=== PATIENT | male | born 1940 | race Caucasian/White ===

== ENCOUNTER 2017-11-24 06:53 | Observation (INO) | payer MEDICARE, OTHER ==
[2017-11-24] MEDS: FAMOTIDINE 20 MG TAB PO (07:00)
[2017-11-24] MEDS ORDERED: SOD CHLORIDE 0.45% 1,000 ML IV (07:00)
[2017-11-24] MEDS: DIPHENHYDRAMINE 50 MG CAP PO (07:00)
[2017-11-24] MEDS: DIAZEPAM 5 MG TAB PO (07:00)
[2017-11-24] MEDS ORDERED: IODIXANOL LOCM 100 ML BTL ×2 (07:49→09:59)
[2017-11-24] MEDS ORDERED: VERAPAMIL 5 MG INJ (07:49)
[2017-11-24] MEDS ORDERED: HEPARIN 1000 UNITS/ML 10 ML INJ (07:49)
[2017-11-24] MEDS ORDERED: LIDOCAINE 1% (MDV) 20 ML INJ (07:49)
[2017-11-24] MEDS ORDERED: NITROGLYCERIN (IC) 100 MCG/ML INJ (07:49)
[2017-11-24 07:57] LABS: ADD MAN DIFF? NO
[2017-11-24 08:04] LABS: BASOPHILS % 0.3 % (0.0-2.0); EOSINOPHILS # 0.4 10^3/ul (0.0-0.5); EOSINOPHILS % 3.9 % (0.0-7.0); HEMATOCRIT 46.3 % (42.0-52.0); HEMOGLOBIN 15.6 g/dl (14.0-18.0); LYMPHOCYTES # 2.2 10^3/ul (0.8-2.9); LYMPHOCYTES % 23.4 % (15.0-51.0); MEAN CORPUSCULAR HEMOGLOBIN 30.8 pg (29.0-33.0); MEAN CORPUSCULAR HGB CONC 33.7 g/dl (32.0-37.0); MEAN CORPUSCULAR VOLUME 91.5 fl (82.0-101.0); MEAN PLATELET VOLUME 9.8 fl (7.4-10.4); MONOCYTE # 0.7 10^3/ul (0.3-0.9); MONOCYTES % 7.6 % (0.0-11.0); NEUTROPHIL # 5.9 10^3/ul (1.6-7.5); NEUTROPHILS % 64.5 % (39.0-77.0); PLATELET COUNT 242 10^3/UL (140-415); RED BLOOD COUNT 5.06 10^6/ul (4.70-6.10); RED CELL DISTRIBUTION WIDTH 12.2 % (11.5-14.5)
[2017-11-24 08:04] LABS: WHITE BLOOD COUNT 9.2 10^3/ul (4.8-10.8)
[2017-11-24 08:20] LABS: INR 0.92; PROTIME 12.4 Sec (11.9-14.9)
[2017-11-24 08:21] LABS: PARTIAL THROMBOPLASTIN TIME 30.7 Sec (25.0-35.0)
[2017-11-24 08:23] LABS: ANION GAP 19 (8-16); CALCIUM 10.1 mg/dl (8.4-10.2); CARBON DIOXIDE 26 mmol/L (21-31); CHLORIDE 103 mmol/L (97-110); CHOL/HDL RATIO 5.1 RATIO; CHOLESTEROL 114 mg/dl (100-200); CREATININE 0.97 mg/dl (0.61-1.24); GLUCOSE 203 mg/dl (70-220); HDL CHOLESTEROL 22 mg/dl (31-75); LDL CHOLESTEROL,CALCULATED 71 mg/dl; POTASSIUM 3.6 mmol/L (3.5-5.1); SODIUM 144 mmol/L (135-144); TRIGLYCERIDES 105 mg/dl (0-149)
[2017-11-24 08:26] LABS: BLOOD UREA NITROGEN 21 mg/dl (7-20)
[2017-11-24] MEDS ORDERED: FENTAnyl 50 MCG/ML VIAL (08:48)
[2017-11-24] MEDS ORDERED: MIDAZOLAM 1 MG/ML 2 ML INJ (08:48)
[2017-11-24] MEDS: SOD CHLORIDE 0.9% 1,000 ML IV (10:26)
[2017-11-24] MEDS ORDERED: morphine 2 MG INJ IV ×2 (10:30→13:30)
[2017-11-24] MEDS ORDERED: ONDANSETRON 4 MG INJ IV ×2 (10:30→13:30)
[2017-11-24] MEDS ORDERED: AL HYDROX/MG HYDROX/SIMETH 30 ML CUP PO (10:30)
[2017-11-24] MEDS ORDERED: ACETAMINOPHEN 325 MG TAB PO ×2 (10:30→13:30)
[2017-11-24] MEDS ORDERED: NON-FORMULARY/PATIENT OWN MED (Dapagliflozin Propanediol (Farxiga) 10 MG) PO (13:30)
[2017-11-24] MEDS: DOCUSATE SODIUM 100 MG CAP PO ×2 (13:30→20:10)
[2017-11-24] MEDS ORDERED: ZOLPIDEM 5 MG TAB PO (13:30)
[2017-11-24] MEDS ORDERED: HYDROCODONE/APAP (5/325) TAB PO (13:30)
[2017-11-24] MEDS ORDERED: LORAZEPAM 0.5 MG TAB PO (13:30)
[2017-11-24 13:46] LABS: HEMOGLOBIN A1C 10.1 % (0-5.9)
[2017-11-24] MEDS: ACCU-CHEK XX ×2 (14:00→20:50)
[2017-11-24] MEDS ORDERED: GLUCAGON 1 MG INJ IM (14:30)
[2017-11-24] MEDS ORDERED: DEXTROSE 50% 50 ML SYRINGE IV ×2 (14:30)
[2017-11-24] MEDS ORDERED: GLUCOSE GEL 15 GRAM TUBE PO ×2 (14:30)
[2017-11-24] MEDS ORDERED: GLUCOSE GEL 15 GRAM TUBE BUCCAL (14:30)
[2017-11-24] MEDS: INSULIN ASPART [NOVOLOG] 3 ML PEN SC ×2 (17:28→20:50)
[2017-11-24] MEDS: FISH OIL 1,000 MG CAP PO (20:11)
[2017-11-24] MEDS: ASCORBIC ACID 500 MG TAB PO (20:11)
[2017-11-24] MEDS: LOSARTAN 50 MG TAB PO (20:11)
[2017-11-24] MEDS: ATORVASTATIN 10 MG TAB PO (20:11)
[2017-11-24] MEDS: ISOSORBIDE MONONITRATE(SR)60 MG TAB PO (20:11)
[2017-11-24] MEDS: HYDROCHLOROTHIAZIDE 25 MG TAB PO (20:12)
[2017-11-24] MEDS: GUAIFENESIN 20 MG/ML 5ML CUP PO ×2 (20:48→23:54)
[2017-11-24] MEDS: INSULIN GLARGINE [LANtus] 3 ML PEN SC (20:56)
[2017-11-25] MEDS: ACCU-CHEK XX ×2 (01:15→09:53)
[2017-11-25] MEDS: GUAIFENESIN 20 MG/ML 5ML CUP PO ×2 (04:36→08:00)
[2017-11-25] MEDS: INSULIN ASPART [NOVOLOG] 3 ML PEN SC ×3 (08:20→12:32)
[2017-11-25] MEDS: FISH OIL 1,000 MG CAP PO (08:23)
[2017-11-25] MEDS: CHOLECALCIFEROL 1,000 UNIT TAB PO (08:23)
[2017-11-25] MEDS: DOCUSATE SODIUM 100 MG CAP PO (08:23)
[2017-11-25] MEDS: LINAGLIPTIN 5 MG TABLET PO (08:23)
[2017-11-25] MEDS: ASPIRIN (EC) 81 MG TAB PO (08:23)
[2017-11-25] MEDS: ASCORBIC ACID 500 MG TAB PO (08:24)
[2017-11-25] MEDS: AMLODIPINE 10 MG TAB PO (08:24)
[2017-11-25] MEDS: ENOXAPARIN 40 MG/0.4 ML SYG SC (08:25)
[2017-11-25] MEDS: INSULIN GLARGINE [LANtus] 3 ML PEN SC (08:26)
[2017-11-25 08:34] LABS: ADD MAN DIFF? NO
[2017-11-25 08:42] LABS: BASOPHILS % 0.3 % (0.0-2.0); EOSINOPHILS # 0.3 10^3/ul (0.0-0.5); EOSINOPHILS % 4.6 % (0.0-7.0); HEMATOCRIT 42.9 % (42.0-52.0); HEMOGLOBIN 14.5 g/dl (14.0-18.0); LYMPHOCYTES # 1.6 10^3/ul (0.8-2.9); LYMPHOCYTES % 21.8 % (15.0-51.0); MEAN CORPUSCULAR HEMOGLOBIN 31.3 pg (29.0-33.0); MEAN CORPUSCULAR HGB CONC 33.8 g/dl (32.0-37.0); MEAN CORPUSCULAR VOLUME 92.7 fl (82.0-101.0); MEAN PLATELET VOLUME 10.2 fl (7.4-10.4); MONOCYTE # 0.6 10^3/ul (0.3-0.9); MONOCYTES % 8.3 % (0.0-11.0); NEUTROPHIL # 4.8 10^3/ul (1.6-7.5); NEUTROPHILS % 64.7 % (39.0-77.0); PLATELET COUNT 231 10^3/UL (140-415); RED BLOOD COUNT 4.63 10^6/ul (4.70-6.10); RED CELL DISTRIBUTION WIDTH 12.3 % (11.5-14.5)
[2017-11-25 08:42] LABS: WHITE BLOOD COUNT 7.4 10^3/ul (4.8-10.8)
[2017-11-25 08:46] LABS: HEMOGLOBIN A1C 9.8 % (0-5.9)
[2017-11-25 09:13] LABS: ALANINE AMINOTRANSFERASE 33 IU/L (13-69); ALBUMIN 3.9 g/dl (3.3-4.9); ALKALINE PHOSPHATASE 53 IU/L (42-121); ANION GAP 16 (8-16); ASPARTATE AMINO TRANSFERASE 21 IU/L (15-46); BILIRUBIN,INDIRECT 0.5 mg/dl (0-1.1); BILIRUBIN,TOTAL 0.5 mg/dl (0.2-1.3); BLOOD UREA NITROGEN 21 mg/dl (7-20); CALCIUM 8.8 mg/dl (8.4-10.2); CARBON DIOXIDE 27 mmol/L (21-31); CHLORIDE 102 mmol/L (97-110); CREATININE 1.04 mg/dl (0.61-1.24); GLUCOSE 296 mg/dl (70-220); POTASSIUM 3.1 mmol/L (3.5-5.1); SODIUM 142 mmol/L (135-144); TOTAL PROTEIN 6.9 g/dl (6.1-8.1)
[2017-11-25] MEDS: POTASSIUM CHLORIDE (SR) 20 MEQ TAB PO (10:42)
[2017-11-25] MEDS ORDERED: ALBUTEROL/IPRATROPIUM (NEB) 3 ML AMP HHN ×2 (11:00→14:00)
[2017-11-25] MEDS: CEFPODOXIME 200 MG TAB PO (12:41)
[2017-11-25] MEDS: SALMETEROL/FLUTICASONE 250/50 INHA INH (12:41)
[2017-11-25] MEDS: TIOTROPIUM 18 MCG CAPSULE INHA DEV INH (12:42)
== END 2017-11-25 13:00 | disposition home or self-care (01) ==
LOC: SDS 06:53 → REC 10:29 → TEL 14:15
PROVIDERS: Internal Medicine
DX: I25.10 Atherosclerotic heart disease of native coronary artery without angina pectoris (principal); E11.9 Type 2 diabetes mellitus without complications; E78.5 Hyperlipidemia, unspecified; I10 Essential (primary) hypertension; Z87.891 Personal history of nicotine dependence
CPT/HCPCS: 71045; 80048; 80053; 80061; 82962; 83036; 83735; 85025; 85610; 85730; 92978; 93005; 93306; 93458; G0378

== ENCOUNTER 2018-01-17 05:31 | Inpatient (IN) | payer MEDICARE, OTHER ==
[2018-01-16 07:49] LABS: ADD MAN DIFF? NO
[2018-01-16 07:54] LABS: BASOPHILS % 0.5 % (0.0-2.0); EOSINOPHILS # 0.3 10^3/ul (0.0-0.5); HEMATOCRIT 47.2 % (42.0-52.0); LYMPHOCYTES # 1.8 10^3/ul (0.8-2.9); LYMPHOCYTES % 28.6 % (15.0-51.0); MEAN CORPUSCULAR HEMOGLOBIN 30.7 pg (29.0-33.0); MEAN CORPUSCULAR HGB CONC 33.9 g/dl (32.0-37.0); MEAN CORPUSCULAR VOLUME 90.6 fl (82.0-101.0); MEAN PLATELET VOLUME 9.7 fl (7.4-10.4); MONOCYTE # 0.6 10^3/ul (0.3-0.9); MONOCYTES % 8.8 % (0.0-11.0); NEUTROPHIL # 3.6 10^3/ul (1.6-7.5); NEUTROPHILS % 57.8 % (39.0-77.0); PLATELET COUNT 204 10^3/UL (140-415); RED BLOOD COUNT 5.21 10^6/ul (4.70-6.10); RED CELL DISTRIBUTION WIDTH 12.2 % (11.5-14.5)
[2018-01-16 07:54] LABS: WHITE BLOOD COUNT 6.3 10^3/ul (4.8-10.8)
[2018-01-16 08:09] LABS: ADD UMIC NO; UR ASCORBIC ACID 40 mg/dL (NEGATIVE); UR BILIRUBIN (Dip) NEGATIVE (NEGATIVE); UR BLOOD (Dip) NEGATIVE (NEGATIVE); UR CLARITY CLEAR (CLEAR); UR COLOR YELLOW (YELLOW); UR GLUCOSE (Dip) 3+ mg/dL (NEGATIVE); UR KETONES (Dip) NEGATIVE (NEGATIVE); UR LEUKOCYTE ESTERASE (Dip) NEGATIVE Leu/ul (NEGATIVE); UR NITRITE (Dip) NEGATIVE (NEGATIVE); UR TOTAL PROTEIN (Dip) NEGATIVE (NEGATIVE); UR UROBILINOGEN (Dip) NEGATIVE (NEGATIVE)
[2018-01-16 08:14] LABS: INR 0.98; PARTIAL THROMBOPLASTIN TIME 28.6 Sec (25.0-35.0); PROTIME 13.1 Sec (11.9-14.9)
[2018-01-16 08:23] LABS: ANION GAP 19 (8-16); BLOOD UREA NITROGEN 19 mg/dl (7-20); CALCIUM 9.2 mg/dl (8.4-10.2); CARBON DIOXIDE 25 mmol/L (21-31); CHLORIDE 102 mmol/L (97-110); CREATININE 0.86 mg/dl (0.61-1.24); GLUCOSE 151 mg/dl (70-220); POTASSIUM 3.6 mmol/L (3.5-5.1); SODIUM 142 mmol/L (135-144)
[~2018-01-17 05:31] MED LIST: PHENYLephrine 20MG IN 250 ML 250 ML IV
[2018-01-17] MEDS ORDERED: TRANEXAMIC ACID 1,000 MG/10 ML VIAL (07:00)
[2018-01-17] MEDS ORDERED: DOPamine-D5W 1.6 MG/ML 250 ML (07:00)
[2018-01-17] MEDS ORDERED: INSULIN REGULAR, HUMAN 100 UNIT/1 ML 3ML VIAL (07:00)
[2018-01-17] MEDS ORDERED: NITROGLYCERIN 50 MG/D5W 250 ML BTL (07:00)
[2018-01-17] MEDS: INSULIN REGULAR, HUMAN 100 UNIT/1 ML 3ML VIAL SC (07:03)
[2018-01-17] MEDS ORDERED: PHENYLephrine 20MG IN 250 ML 250 ML IV (07:30)
[2018-01-17] MEDS ORDERED: EPINEPHrine 4 MG in DEXTROSE 5% 246 ML IV (07:30)
[2018-01-17] MEDS ORDERED: INSULIN HUMAN REGULAR 100 UNIT in SOD CHLORIDE 0.9% 99 ML IV (07:30)
[2018-01-17] MEDS ORDERED: MIDAZOLAM 5 ML ×3 (07:36→12:43)
[2018-01-17] MEDS ORDERED: PHENYLephrine (100 MCG/ML) 5ML SYG ×2 (07:45→09:52)
[2018-01-17] MEDS ORDERED: CA CHLORIDE 10% 10 ML SYRINGE (08:32)
[2018-01-17] MEDS ORDERED: MAGNESIUM SULFATE (MG) 50% 10 ML INJ (08:32)
[2018-01-17] MEDS ORDERED: MANNITOL 20% 250 ML IV (08:32)
[2018-01-17] MEDS ORDERED: LIDOCAINE 100 MG SYRINGE (08:32)
[2018-01-17] MEDS ORDERED: ALBUMIN HUMAN 25% 200 ML (08:32)
[2018-01-17] MEDS ORDERED: NA BICARBONATE 8.4% 50 ML SYG (08:32)
[2018-01-17] MEDS ORDERED: PHENYLephrine 10 MG INJ (08:32)
[2018-01-17] MEDS ORDERED: POTASSIUM CHLORIDE 40 MEQ INJ (08:33)
[2018-01-17] MEDS ORDERED: AMINOCAPROIC ACID 5 GM INJ ×2 (08:33→11:05)
[2018-01-17] MEDS ORDERED: FUROSEMIDE 20 MG INJ ×2 (08:33→10:34)
[2018-01-17] MEDS ORDERED: HEPARIN 1000 UNITS/ML 10 ML INJ ×2 (08:33→09:19)
[2018-01-17] MEDS ORDERED: CEFAZOLIN 1 GM INJ ×2 (08:50→11:05)
[2018-01-17] MEDS ORDERED: PROTAMINE 250 MG INJ (11:10)
[2018-01-17] MEDS: HEPARIN 1000 UNITS/ML 10 ML INJ (11:48)
[2018-01-17] MEDS: PAPAVERINE 60 MG INJ (11:49)
[2018-01-17] MEDS: VANCOMYCIN 1 GM INJ (11:50)
[2018-01-17] MEDS: GELATIN SIZE 100 SPONGE (12:16)
[2018-01-17] MEDS: THROMBIN 5000 UNIT VIAL TOP (12:17)
[2018-01-17] MEDS ORDERED: LIDOCAINE 2% (SDV) 5 ML INJ (12:58)
[2018-01-17] MEDS ORDERED: ROCURONIUM 50 MG INJ (12:58)
[2018-01-17] MEDS ORDERED: ETOMIDATE 20 MG INJ (12:58)
[2018-01-17] MEDS ORDERED: POTASSIUM CHLORIDE 50 ML IVPB ×2 (13:30→14:30)
[2018-01-17] MEDS ORDERED: ACETAMINOPHEN 650 MG SUPP PR ×2 (13:30→14:30)
[2018-01-17] MEDS ORDERED: NITROGLYCERIN 50 MG/D5W (PMX) 250 ML IV (13:30)
[2018-01-17] MEDS ORDERED: HYDROmorphONE 0.5 MG/0.5 ML SYG IV ×6 (13:30→14:30)
[2018-01-17] MEDS ORDERED: ALBUMIN HUMAN 5% 250 ML IV (13:30)
[2018-01-17] MEDS ORDERED: ONDANSETRON 4 MG INJ IV ×2 (13:30→14:30)
[2018-01-17] MEDS ORDERED: MEPERIDINE 25 MG INJ IV (13:30)
[2018-01-17] MEDS ORDERED: LORAZEPAM 2 MG INJ IV (13:30)
[2018-01-17] MEDS ORDERED: MAGNESIUM SULFATE 1 GM/D5W 100 ML IVPB ×2 (13:30→14:30)
[2018-01-17] MEDS ORDERED: ACETAMINOPHEN 325 MG TAB PO (13:30)
[2018-01-17] MEDS ORDERED: DOPamine-D5W 1.6 MG/ML 250 ML IV (13:30)
[2018-01-17] MEDS ORDERED: DIPHENHYDRAMINE 50 MG INJ IV (13:30)
[2018-01-17] MEDS ORDERED: MIDAZOLAM 1 MG/ML 2 ML INJ IV (13:30)
[2018-01-17] MEDS ORDERED: FENTAnyl 50 MCG/ML VIAL IV (13:30)
[2018-01-17] MEDS ORDERED: morphine (1 MG/ML) 10ML SYRINGE IV ×2 (13:30)
[2018-01-17] MEDS ORDERED: DEXTROSE 50% 50 ML SYRINGE IV ×2 (14:00)
[2018-01-17 14:05] LABS: ADD MAN DIFF? NO; BASOPHILS % 0.2 % (0.0-2.0); EOSINOPHILS # 0.1 10^3/ul (0.0-0.5); EOSINOPHILS % 0.3 % (0.0-7.0); HEMATOCRIT 38.5 % (42.0-52.0); HEMOGLOBIN 13.4 g/dl (14.0-18.0); MEAN CORPUSCULAR HEMOGLOBIN 31.8 pg (29.0-33.0); MEAN CORPUSCULAR HGB CONC 34.8 g/dl (32.0-37.0); MEAN CORPUSCULAR VOLUME 91.4 fl (82.0-101.0); MEAN PLATELET VOLUME 9.1 fl (7.4-10.4); MONOCYTE # 0.6 10^3/ul (0.3-0.9); MONOCYTES % 4.1 % (0.0-11.0); NEUTROPHIL # 11.6 10^3/ul (1.6-7.5); NEUTROPHILS % 80.7 % (39.0-77.0); PLATELET COUNT 117 10^3/UL (140-415); RED BLOOD COUNT 4.21 10^6/ul (4.70-6.10); RED CELL DISTRIBUTION WIDTH 12.2 % (11.5-14.5)
[2018-01-17 14:05] LABS: WHITE BLOOD COUNT 14.3 10^3/ul (4.8-10.8)
[2018-01-17] MEDS ORDERED: OXYCODONE/ACETAMINOPHEN (5/325) TAB PO ×2 (14:30)
[2018-01-17 14:39] LABS: INR 1.31; PROTIME 16.5 Sec (11.9-14.9); PT RATIO 1.3
[2018-01-17] MEDS: ALBUMIN HUMAN 5% 250 ML IV ×2 (14:48→15:36)
[2018-01-17 14:50] LABS: AADO2 Arterial 224.2 mmHg (7.0-24.0); Arterial Base Excess -4.5 mmol/L (-3.0-3); Arterial Blood Gas Oxygen Sat 93.9 mmHG (95.0-100.0); Arterial COHb 0.3 % (0.0-3.0); Arterial Fraction of Oxyhgb 93.1 % (93.0-99.0); Arterial HCO3 22.2 mmol/L (22.0-26.0); Arterial MetHb 0.5 % (0.0-1.5); MODE VENT - AC; Site A-Line
[2018-01-17 14:52] LABS: MODE VENT - AC; MetHgb Mixed Venous 0.5 %; Mixed Venous Base Excess -3.6 mmol/L; Mixed Venous COHb 0.5 %; Mixed Venous Fraction OxyHgb 71.4 %; Mixed Venous Oxygen Sat 72.1 mmHG (65.0-75.0); Sample Type BLMV; Site PUL ART LINE
[2018-01-17] MEDS ORDERED: POTASSIUM CHLORIDE 40 MEQ, CALCIUM CHLORIDE 10% 1 GM in DEXTROSE 5%-0.225% NACL 1,000 ML IV (15:00)
[2018-01-17 15:14] LABS: ANION GAP 13 (8-16); BLOOD UREA NITROGEN 21 mg/dl (7-20); CALCIUM 8.7 mg/dl (8.4-10.2); CARBON DIOXIDE 26 mmol/L (21-31); CHLORIDE 110 mmol/L (97-110); CREATININE 0.92 mg/dl (0.61-1.24); GLUCOSE 101 mg/dl (70-220); MAGNESIUM 2.7 mg/dl (1.7-2.5); POTASSIUM 3.2 mmol/L (3.5-5.1); SODIUM 146 mmol/L (135-144)
[2018-01-17] MEDS: POTASSIUM CHLORIDE 40 MEQ, CALCIUM CHLORIDE 10% 1 GM in DEXTROSE 5%-0.225% NACL 1,000 ML IV ×2 (15:28→19:49)
[2018-01-17] MEDS: ACCU-CHEK XX ×9 (15:55→23:38)
[2018-01-17 16:25] LABS: AADO2 Arterial 192.3 mmHg (7.0-24.0); Arterial Base Excess -1.5 mmol/L (-3.0-3); Arterial Blood Gas Oxygen Sat 95.6 mmHG (95.0-100.0); Arterial COHb 0.1 % (0.0-3.0); Arterial Fraction of Oxyhgb 95.1 % (93.0-99.0); Arterial HCO3 23.2 mmol/L (22.0-26.0); Arterial MetHb 0.4 % (0.0-1.5); Arterial pCO2 39.4 mmhg (35-45); MODE VENT - AC; Site A-Line
[2018-01-17] MEDS: HYDROmorphONE 0.5 MG/0.5 ML SYG IV (16:31)
[2018-01-17] MEDS: KCL 30 MEQ in NS 250 ML IVPB X1 IVPB (16:44)
[2018-01-17] MEDS: INSULIN HUMAN REGULAR 100 UNIT in SOD CHLORIDE 0.9% 99 ML IV (18:08)
[2018-01-17 18:20] LABS: AADO2 Arterial 145.7 mmHg (7.0-24.0); Arterial Base Excess -3.9 mmol/L (-3.0-3); Arterial Blood Gas Oxygen Sat 96.5 mmHG (95.0-100.0); Arterial COHb 0.2 % (0.0-3.0); Arterial Fraction of Oxyhgb 95.9 % (93.0-99.0); Arterial HCO3 21.5 mmol/L (22.0-26.0); Arterial MetHb 0.4 % (0.0-1.5); Arterial Total Hemglobin 13.4 g/dl (12.0-18.0); Arterial pCO2 40.4 mmhg (35-45); Blood Gas PS 5; MODE VENT - CPAP; Site A-Line
[2018-01-17] MEDS: FAMOTIDINE 20 MG INJ IV (19:49)
[2018-01-17] MEDS ORDERED: FAMOTIDINE 20 MG INJ IV (20:00)
[2018-01-17 22:09] LABS: ANION GAP 13 (8-16); BLOOD UREA NITROGEN 18 mg/dl (7-20); CALCIUM 8.6 mg/dl (8.4-10.2); CARBON DIOXIDE 25 mmol/L (21-31); CHLORIDE 112 mmol/L (97-110); CREATININE 0.93 mg/dl (0.61-1.24); GLUCOSE 175 mg/dl (70-220); MAGNESIUM 2.2 mg/dl (1.7-2.5); POTASSIUM 4.1 mmol/L (3.5-5.1); SODIUM 146 mmol/L (135-144)
[2018-01-18] MEDS: ACCU-CHEK XX ×25 (00:15→23:00)
[2018-01-18] MEDS: ACETAMINOPHEN 325 MG TAB PO (00:21)
[2018-01-18] MEDS: OXYCODONE/ACETAMINOPHEN (5/325) TAB PO ×6 (02:38→21:33)
[2018-01-18] MEDS: ONDANSETRON 4 MG INJ IV ×2 (03:00→08:17)
[2018-01-18 05:16] LABS: ADD MAN DIFF? NO
[2018-01-18 05:18] LABS: ABNORMAL IP MESSAGE 1; BASOPHILS % 0.2 % (0.0-2.0); EOSINOPHILS % 0.1 % (0.0-7.0); HEMATOCRIT 35.9 % (42.0-52.0); HEMOGLOBIN 12.1 g/dl (14.0-18.0); LYMPHOCYTES # 0.6 10^3/ul (0.8-2.9); LYMPHOCYTES % 4.7 % (15.0-51.0); MEAN CORPUSCULAR HEMOGLOBIN 31.3 pg (29.0-33.0); MEAN CORPUSCULAR HGB CONC 33.7 g/dl (32.0-37.0); MEAN PLATELET VOLUME 10.2 fl (7.4-10.4); MONOCYTE # 1.1 10^3/ul (0.3-0.9); MONOCYTES % 9.1 % (0.0-11.0); NEUTROPHIL # 10.6 10^3/ul (1.6-7.5); NEUTROPHILS % 85.5 % (39.0-77.0); PLATELET COUNT 137 10^3/UL (140-415); POSITIVE DIFF @See below; RED BLOOD COUNT 3.86 10^6/ul (4.70-6.10)
[2018-01-18 05:18] LABS: WHITE BLOOD COUNT 12.3 10^3/ul (4.8-10.8)
[2018-01-18 05:38] LABS: INR 1.17; PROTIME 15.1 Sec (11.9-14.9); PT RATIO 1.2
[2018-01-18 06:04] LABS: ANION GAP 17 (8-16); BLOOD UREA NITROGEN 17 mg/dl (7-20); CARBON DIOXIDE 25 mmol/L (21-31); CHLORIDE 114 mmol/L (97-110); CREATININE 0.93 mg/dl (0.61-1.24); GLUCOSE 141 mg/dl (70-220); MAGNESIUM 2.1 mg/dl (1.7-2.5); POTASSIUM 4.5 mmol/L (3.5-5.1); SODIUM 151 mmol/L (135-144)
[2018-01-18] MEDS: INSULIN HUMAN REGULAR 100 UNIT in SOD CHLORIDE 0.9% 99 ML IV ×2 (07:01→22:18)
[2018-01-18] MEDS: FAMOTIDINE 20 MG INJ IV ×2 (08:17→20:12)
[2018-01-18] MEDS: hydrALAzine 20 MG INJ IV (11:52)
[2018-01-18] MEDS: ASPIRIN (EC) 325 MG TAB PO (12:01)
[2018-01-18] MEDS: HYDROmorphONE 0.5 MG/0.5 ML SYG IV (12:34)
[2018-01-18] MEDS: FUROSEMIDE 20 MG INJ IV (18:49)
[2018-01-18] MEDS: METOPROLOL 25 MG TAB PO (20:13)
[2018-01-19] MEDS: ACCU-CHEK XX ×13 (00:03→12:00)
[2018-01-19] MEDS: OXYCODONE/ACETAMINOPHEN (5/325) TAB PO ×3 (02:10→16:14)
[2018-01-19 05:07] LABS: ADD MAN DIFF? NO
[2018-01-19 05:12] LABS: BASOPHILS % 0.1 % (0.0-2.0); EOSINOPHILS # 0.1 10^3/ul (0.0-0.5); EOSINOPHILS % 0.6 % (0.0-7.0); HEMATOCRIT 35.7 % (42.0-52.0); HEMOGLOBIN 11.9 g/dl (14.0-18.0); LYMPHOCYTES % 7.1 % (15.0-51.0); MEAN CORPUSCULAR HEMOGLOBIN 31.3 pg (29.0-33.0); MEAN CORPUSCULAR HGB CONC 33.3 g/dl (32.0-37.0); MEAN CORPUSCULAR VOLUME 93.9 fl (82.0-101.0); MEAN PLATELET VOLUME 10.3 fl (7.4-10.4); MONOCYTE # 1.2 10^3/ul (0.3-0.9); MONOCYTES % 8.7 % (0.0-11.0); NEUTROPHIL # 11.8 10^3/ul (1.6-7.5); PLATELET COUNT 124 10^3/UL (140-415); RED CELL DISTRIBUTION WIDTH 13.1 % (11.5-14.5)
[2018-01-19 05:12] LABS: WHITE BLOOD COUNT 14.3 10^3/ul (4.8-10.8)
[2018-01-19 05:29] LABS: ANION GAP 12 (8-16); BLOOD UREA NITROGEN 18 mg/dl (7-20); CALCIUM 8.9 mg/dl (8.4-10.2); CARBON DIOXIDE 28 mmol/L (21-31); CHLORIDE 108 mmol/L (97-110); CREATININE 0.97 mg/dl (0.61-1.24); GLUCOSE 162 mg/dl (70-220); POTASSIUM 3.7 mmol/L (3.5-5.1); SODIUM 144 mmol/L (135-144)
[2018-01-19] MEDS: FAMOTIDINE 20 MG INJ IV (08:24)
[2018-01-19] MEDS: METOPROLOL 25 MG TAB PO ×2 (08:26→20:54)
[2018-01-19] MEDS: ASPIRIN 81 MG TAB PO (08:27)
[2018-01-19] MEDS: FUROSEMIDE 20 MG INJ IV (12:20)
[2018-01-19] MEDS ORDERED: FAMOTIDINE 20 MG TAB PO (12:53)
[2018-01-19] MEDS ORDERED: GLUCAGON 1 MG INJ IM (13:00)
[2018-01-19] MEDS ORDERED: GLUCOSE GEL 15 GRAM TUBE PO ×2 (13:00)
[2018-01-19] MEDS ORDERED: DEXTROSE 50% 50 ML SYRINGE IV ×2 (13:00)
[2018-01-19] MEDS ORDERED: GLUCOSE GEL 15 GRAM TUBE BUCCAL (13:00)
[2018-01-19] MEDS: POLYETHYLENE GLYCOL 17 GM PACKET GTB (16:54)
[2018-01-19] MEDS ORDERED: INSULIN ASPART [NOVOLOG] 3 ML PEN SC (17:35)
[2018-01-19] MEDS: hydrALAzine 20 MG INJ IV (18:17)
[2018-01-19] MEDS: INSULIN ASPART [NOVOLOG] 3 ML PEN SC ×3 (18:19→20:56)
[2018-01-19] MEDS ORDERED: INSULIN GLARGINE [LANtus] 3 ML PEN SC (20:00)
[2018-01-19] MEDS: POTASSIUM CHLORIDE (SR) 10 MEQ TAB PO (20:18)
[2018-01-19] MEDS: INSULIN GLARGINE [LANtus] 3 ML PEN SC (20:20)
[2018-01-19] MEDS: FAMOTIDINE 20 MG TAB PO (20:54)
[2018-01-19] MEDS: DOCUSATE SODIUM 100 MG CAP PO (20:54)
[2018-01-19] MEDS: ATORVASTATIN 20 MG TAB PO (20:54)
[2018-01-20] MEDS: ACCU-CHEK XX ×6 (02:00→19:55)
[2018-01-20 05:49] LABS: ADD MAN DIFF? NO
[2018-01-20 06:02] LABS: WHITE BLOOD COUNT 11.3 10^3/ul (4.8-10.8)
[2018-01-20 06:02] LABS: BASOPHILS % 0.3 % (0.0-2.0); EOSINOPHILS # 0.1 10^3/ul (0.0-0.5); EOSINOPHILS % 1.2 % (0.0-7.0); HEMATOCRIT 36.4 % (42.0-52.0); LYMPHOCYTES # 2.1 10^3/ul (0.8-2.9); LYMPHOCYTES % 18.2 % (15.0-51.0); MEAN CORPUSCULAR HEMOGLOBIN 31.2 pg (29.0-33.0); MEAN CORPUSCULAR VOLUME 94.5 fl (82.0-101.0); MEAN PLATELET VOLUME 10.4 fl (7.4-10.4); MONOCYTES % 8.9 % (0.0-11.0); PLATELET COUNT 128 10^3/UL (140-415); RED BLOOD COUNT 3.85 10^6/ul (4.70-6.10); RED CELL DISTRIBUTION WIDTH 12.8 % (11.5-14.5)
[2018-01-20 06:21] LABS: ALANINE AMINOTRANSFERASE 22 IU/L (13-69); ALBUMIN 3.5 g/dl (3.3-4.9); ALBUMIN/GLOBULIN RATIO 1.25; ALKALINE PHOSPHATASE 38 IU/L (42-121); ANION GAP 14 (8-16); ASPARTATE AMINO TRANSFERASE 21 IU/L (15-46); BILIRUBIN,INDIRECT 0.6 mg/dl (0-1.1); BILIRUBIN,TOTAL 0.6 mg/dl (0.2-1.3); BLOOD UREA NITROGEN 20 mg/dl (7-20); CALCIUM 8.6 mg/dl (8.4-10.2); CARBON DIOXIDE 25 mmol/L (21-31); CHLORIDE 105 mmol/L (97-110); CREATININE 0.81 mg/dl (0.61-1.24); GLUCOSE 253 mg/dl (70-220); POTASSIUM 4.1 mmol/L (3.5-5.1); SODIUM 140 mmol/L (135-144); TOTAL PROTEIN 6.3 g/dl (6.1-8.1)
[2018-01-20] MEDS: METOPROLOL 25 MG TAB PO ×2 (08:22→20:39)
[2018-01-20] MEDS: FAMOTIDINE 20 MG TAB PO ×2 (08:22→20:39)
[2018-01-20] MEDS: EMPAGLIFLOZIN 10 MG TABLET PO (08:22)
[2018-01-20] MEDS: DOCUSATE SODIUM 100 MG CAP PO ×2 (08:23→20:38)
[2018-01-20] MEDS: LINAGLIPTIN 5 MG TABLET PO (08:23)
[2018-01-20] MEDS: ASPIRIN 81 MG TAB PO (08:23)
[2018-01-20] MEDS: INSULIN ASPART [NOVOLOG] 3 ML PEN SC ×8 (08:26→20:37)
[2018-01-20] MEDS ORDERED: NON-FORMULARY/PATIENT OWN MED (Sitagliptin* (Januvia*) 100 MG) PO (09:00)
[2018-01-20] MEDS: INSULIN GLARGINE [LANtus] 3 ML PEN SC ×2 (09:47→20:37)
[2018-01-20] MEDS: FUROSEMIDE 40 MG INJ IV (13:03)
[2018-01-20] MEDS: ALBUTEROL/IPRATROPIUM (NEB) 3 ML AMP HHN ×2 (14:10→19:47)
[2018-01-20] MEDS: GUAIFENESIN 20 MG/ML 5ML CUP PO ×2 (14:47→21:03)
[2018-01-20] MEDS: HYDROmorphONE 0.5 MG/0.5 ML SYG IV (15:27)
[2018-01-20] MEDS: ATORVASTATIN 20 MG TAB PO (20:38)
[2018-01-21] MEDS: ALBUTEROL/IPRATROPIUM (NEB) 3 ML AMP HHN ×5 (01:38→20:16)
[2018-01-21] MEDS: ACCU-CHEK XX ×7 (02:00→19:55)
[2018-01-21] MEDS: GUAIFENESIN 20 MG/ML 5ML CUP PO ×2 (05:46→19:53)
[2018-01-21] MEDS: FUROSEMIDE 40 MG INJ IV (05:47)
[2018-01-21] MEDS: POLYETHYLENE GLYCOL 17 GM PACKET GTB ×2 (06:57→14:27)
[2018-01-21] MEDS: OXYCODONE/ACETAMINOPHEN (5/325) TAB PO ×3 (06:57→19:51)
[2018-01-21 07:15] LABS: ADD MAN DIFF? NO
[2018-01-21 07:22] LABS: BASOPHILS % 0.2 % (0.0-2.0); EOSINOPHILS # 0.2 10^3/ul (0.0-0.5); EOSINOPHILS % 1.7 % (0.0-7.0); HEMATOCRIT 38.6 % (42.0-52.0); HEMOGLOBIN 13.1 g/dl (14.0-18.0); LYMPHOCYTES # 1.6 10^3/ul (0.8-2.9); LYMPHOCYTES % 12.6 % (15.0-51.0); MEAN CORPUSCULAR HEMOGLOBIN 31.6 pg (29.0-33.0); MEAN CORPUSCULAR HGB CONC 33.9 g/dl (32.0-37.0); MEAN PLATELET VOLUME 10.1 fl (7.4-10.4); MONOCYTE # 1.4 10^3/ul (0.3-0.9); MONOCYTES % 10.9 % (0.0-11.0); NEUTROPHIL # 9.5 10^3/ul (1.6-7.5); PLATELET COUNT 186 10^3/UL (140-415); RED BLOOD COUNT 4.15 10^6/ul (4.70-6.10); RED CELL DISTRIBUTION WIDTH 12.8 % (11.5-14.5)
[2018-01-21 07:22] LABS: WHITE BLOOD COUNT 12.9 10^3/ul (4.8-10.8)
[2018-01-21] MEDS: INSULIN ASPART [NOVOLOG] 3 ML PEN SC ×7 (07:54→20:47)
[2018-01-21 07:55] LABS: ALANINE AMINOTRANSFERASE 25 IU/L (13-69); ALBUMIN 3.6 g/dl (3.3-4.9); ALBUMIN/GLOBULIN RATIO 1.16; ALKALINE PHOSPHATASE 40 IU/L (42-121); ANION GAP 16 (8-16); ASPARTATE AMINO TRANSFERASE 22 IU/L (15-46); BILIRUBIN,INDIRECT 0.7 mg/dl (0-1.1); BILIRUBIN,TOTAL 0.7 mg/dl (0.2-1.3); BLOOD UREA NITROGEN 20 mg/dl (7-20); CALCIUM 8.8 mg/dl (8.4-10.2); CARBON DIOXIDE 28 mmol/L (21-31); CHLORIDE 104 mmol/L (97-110); GLUCOSE 220 mg/dl (70-220); POTASSIUM 3.7 mmol/L (3.5-5.1); SODIUM 144 mmol/L (135-144); TOTAL PROTEIN 6.7 g/dl (6.1-8.1)
[2018-01-21] MEDS: METOPROLOL 25 MG TAB PO ×2 (09:07→20:46)
[2018-01-21] MEDS: FAMOTIDINE 20 MG TAB PO ×2 (09:07→20:45)
[2018-01-21] MEDS: ASPIRIN 81 MG TAB PO (09:07)
[2018-01-21] MEDS: EMPAGLIFLOZIN 10 MG TABLET PO (09:07)
[2018-01-21] MEDS: DOCUSATE SODIUM 100 MG CAP PO ×2 (09:07→20:47)
[2018-01-21] MEDS: LINAGLIPTIN 5 MG TABLET PO (09:07)
[2018-01-21] MEDS: metFORMIN 500 MG TAB PO ×2 (12:01→18:00)
[2018-01-21] MEDS: INSULIN GLARGINE [LANtus] 3 ML PEN SC (20:44)
[2018-01-21] MEDS: ATORVASTATIN 20 MG TAB PO (20:45)
[2018-01-22] MEDS: ALBUTEROL/IPRATROPIUM (NEB) 3 ML AMP HHN ×4 (01:37→20:14)
[2018-01-22] MEDS: ACCU-CHEK XX ×7 (02:00→20:29)
[2018-01-22] MEDS: GUAIFENESIN 20 MG/ML 5ML CUP PO ×3 (02:59→18:50)
[2018-01-22] MEDS: FUROSEMIDE 40 MG INJ IV (05:34)
[2018-01-22] MEDS: OXYCODONE/ACETAMINOPHEN (5/325) TAB PO ×3 (05:40→18:42)
[2018-01-22] MEDS: EMPAGLIFLOZIN 10 MG TABLET PO (07:50)
[2018-01-22] MEDS: metFORMIN 500 MG TAB PO ×3 (07:50→17:21)
[2018-01-22] MEDS: INSULIN ASPART [NOVOLOG] 3 ML PEN SC ×7 (07:52→20:35)
[2018-01-22] MEDS: DOCUSATE SODIUM 100 MG CAP PO ×2 (09:11→20:26)
[2018-01-22] MEDS: METOPROLOL 25 MG TAB PO ×2 (09:12→20:26)
[2018-01-22] MEDS: ASPIRIN 81 MG TAB PO (09:12)
[2018-01-22] MEDS: LINAGLIPTIN 5 MG TABLET PO (09:12)
[2018-01-22] MEDS: FAMOTIDINE 20 MG TAB PO ×2 (09:12→20:27)
[2018-01-22 09:14] LABS: ADD MAN DIFF? NO
[2018-01-22 09:19] LABS: WHITE BLOOD COUNT 10.8 10^3/ul (4.8-10.8)
[2018-01-22 09:19] LABS: BASOPHIL # 0.1 10^3/ul (0.0-0.1); BASOPHILS % 0.5 % (0.0-2.0); EOSINOPHILS # 0.5 10^3/ul (0.0-0.5); EOSINOPHILS % 4.4 % (0.0-7.0); HEMATOCRIT 37.6 % (42.0-52.0); HEMOGLOBIN 12.3 g/dl (14.0-18.0); LYMPHOCYTES # 1.7 10^3/ul (0.8-2.9); LYMPHOCYTES % 15.4 % (15.0-51.0); MEAN CORPUSCULAR HGB CONC 32.7 g/dl (32.0-37.0); MEAN CORPUSCULAR VOLUME 94.7 fl (82.0-101.0); MEAN PLATELET VOLUME 10.3 fl (7.4-10.4); MONOCYTES % 9.1 % (0.0-11.0); NEUTROPHIL # 7.5 10^3/ul (1.6-7.5); NEUTROPHILS % 69.5 % (39.0-77.0); PLATELET COUNT 178 10^3/UL (140-415); RED BLOOD COUNT 3.97 10^6/ul (4.70-6.10); RED CELL DISTRIBUTION WIDTH 12.7 % (11.5-14.5)
[2018-01-22 09:39] LABS: ANION GAP 18 (8-16); BLOOD UREA NITROGEN 22 mg/dl (7-20); CALCIUM 8.1 mg/dl (8.4-10.2); CARBON DIOXIDE 24 mmol/L (21-31); CHLORIDE 100 mmol/L (97-110); GLUCOSE 292 mg/dl (70-220); POTASSIUM 3.4 mmol/L (3.5-5.1); SODIUM 139 mmol/L (135-144)
[2018-01-22] MEDS ORDERED: NA PHOSPHATE/BIPHOS 133 ML ENEMA PR (17:30)
[2018-01-22] MEDS: METHYLNALTREXONE 12 MG/0.6 ML VIAL SC (18:38)
[2018-01-22] MEDS: CEPASTAT LOZENGE MT (18:41)
[2018-01-22] MEDS: ATORVASTATIN 20 MG TAB PO (20:27)
[2018-01-22] MEDS: INSULIN GLARGINE [LANtus] 3 ML PEN SC (20:35)
[2018-01-23] MEDS: ACCU-CHEK XX ×7 (01:30→20:11)
[2018-01-23] MEDS: ALBUTEROL/IPRATROPIUM (NEB) 3 ML AMP HHN ×4 (01:46→20:14)
[2018-01-23] MEDS: OXYCODONE/ACETAMINOPHEN (5/325) TAB PO ×2 (04:36→23:33)
[2018-01-23] MEDS: FUROSEMIDE 40 MG INJ IV (05:03)
[2018-01-23] MEDS: metFORMIN 500 MG TAB PO ×3 (08:28→17:59)
[2018-01-23] MEDS: LINAGLIPTIN 5 MG TABLET PO (08:29)
[2018-01-23] MEDS: FAMOTIDINE 20 MG TAB PO ×2 (08:29→20:07)
[2018-01-23] MEDS: ASPIRIN 81 MG TAB PO (08:29)
[2018-01-23] MEDS: DOCUSATE SODIUM 100 MG CAP PO ×2 (08:30→20:07)
[2018-01-23] MEDS: EMPAGLIFLOZIN 10 MG TABLET PO (08:30)
[2018-01-23] MEDS: METOPROLOL 25 MG TAB PO ×2 (08:30→20:07)
[2018-01-23] MEDS: METHYLNALTREXONE 12 MG/0.6 ML VIAL SC (08:31)
[2018-01-23] MEDS: GUAIFENESIN 20 MG/ML 5ML CUP PO (08:32)
[2018-01-23] MEDS: INSULIN ASPART [NOVOLOG] 3 ML PEN SC ×7 (08:34→20:11)
[2018-01-23] MEDS: DIPHENHYDRAMINE 1%/ZINC 28.3 GM CR TOP ×3 (13:16→23:31)
[2018-01-23] MEDS: ACETAMINOPHEN 325 MG TAB PO (16:48)
[2018-01-23] MEDS: ATORVASTATIN 20 MG TAB PO (20:07)
[2018-01-23] MEDS: INSULIN GLARGINE [LANtus] 3 ML PEN SC (20:18)
[2018-01-24] MEDS: ALBUTEROL/IPRATROPIUM (NEB) 3 ML AMP HHN ×4 (01:54→21:48)
[2018-01-24] MEDS: ACCU-CHEK XX ×7 (02:00→20:30)
[2018-01-24] MEDS: DIPHENHYDRAMINE 1%/ZINC 28.3 GM CR TOP ×3 (05:37→17:41)
[2018-01-24] MEDS: FUROSEMIDE 40 MG INJ IV (05:39)
[2018-01-24] MEDS: INSULIN ASPART [NOVOLOG] 3 ML PEN SC ×7 (07:55→22:03)
[2018-01-24] MEDS: FAMOTIDINE 20 MG TAB PO ×2 (08:21→22:03)
[2018-01-24] MEDS: METOPROLOL 25 MG TAB PO ×2 (08:22→22:04)
[2018-01-24] MEDS: ASPIRIN 81 MG TAB PO (08:22)
[2018-01-24] MEDS: DOCUSATE SODIUM 100 MG CAP PO ×2 (08:22→22:02)
[2018-01-24] MEDS: LINAGLIPTIN 5 MG TABLET PO (08:22)
[2018-01-24] MEDS: metFORMIN 500 MG TAB PO ×2 (08:22→17:41)
[2018-01-24] MEDS: METHYLNALTREXONE 12 MG/0.6 ML VIAL SC (08:24)
[2018-01-24] MEDS: EMPAGLIFLOZIN 10 MG TABLET PO (08:26)
[2018-01-24 10:21] LABS: ADD MAN DIFF? NO
[2018-01-24 10:24] LABS: WHITE BLOOD COUNT 9.5 10^3/ul (4.8-10.8)
[2018-01-24 10:24] LABS: BASOPHILS % 0.3 % (0.0-2.0); EOSINOPHILS # 0.5 10^3/ul (0.0-0.5); EOSINOPHILS % 5.2 % (0.0-7.0); HEMATOCRIT 37.1 % (42.0-52.0); HEMOGLOBIN 12.4 g/dl (14.0-18.0); LYMPHOCYTES # 1.1 10^3/ul (0.8-2.9); LYMPHOCYTES % 11.5 % (15.0-51.0); MEAN CORPUSCULAR HEMOGLOBIN 31.6 pg (29.0-33.0); MEAN CORPUSCULAR HGB CONC 33.4 g/dl (32.0-37.0); MEAN CORPUSCULAR VOLUME 94.4 fl (82.0-101.0); MEAN PLATELET VOLUME 9.8 fl (7.4-10.4); MONOCYTE # 0.7 10^3/ul (0.3-0.9); MONOCYTES % 6.9 % (0.0-11.0); NEUTROPHIL # 7.1 10^3/ul (1.6-7.5); PLATELET COUNT 264 10^3/UL (140-415); RED BLOOD COUNT 3.93 10^6/ul (4.70-6.10)
[2018-01-24 10:48] LABS: ANION GAP 18 (8-16); BLOOD UREA NITROGEN 20 mg/dl (7-20); CALCIUM 8.7 mg/dl (8.4-10.2); CARBON DIOXIDE 28 mmol/L (21-31); CHLORIDE 97 mmol/L (97-110); CREATININE 0.95 mg/dl (0.61-1.24); GLUCOSE 159 mg/dl (70-220); POTASSIUM 3.2 mmol/L (3.5-5.1); SODIUM 140 mmol/L (135-144)
[2018-01-24] MEDS: GUAIFENESIN 20 MG/ML 5ML CUP PO ×2 (11:37→22:12)
[2018-01-24] MEDS: LOSARTAN 25 MG TAB PO (13:06)
[2018-01-24] MEDS: POTASSIUM CHLORIDE (SR) 20 MEQ TAB PO (13:06)
[2018-01-24] MEDS: OXYCODONE/ACETAMINOPHEN (5/325) TAB PO ×2 (14:21→22:13)
[2018-01-24] MEDS ORDERED: POTASSIUM CHLORIDE 20 MEQ POWDER FOR ORAL SOLN PO (17:30)
[2018-01-24] MEDS: ATORVASTATIN 20 MG TAB PO (22:02)
[2018-01-24] MEDS: INSULIN GLARGINE [LANtus] 3 ML PEN SC (22:10)
[2018-01-25] MEDS: DIPHENHYDRAMINE 1%/ZINC 28.3 GM CR TOP ×5 (00:34→23:02)
[2018-01-25] MEDS: ACCU-CHEK XX ×7 (02:00→20:40)
[2018-01-25] MEDS: ALBUTEROL/IPRATROPIUM (NEB) 3 ML AMP HHN ×4 (02:41→19:16)
[2018-01-25] MEDS: FUROSEMIDE 40 MG INJ IV (05:51)
[2018-01-25 08:11] LABS: ADD MAN DIFF? NO
[2018-01-25 08:14] LABS: BASOPHILS % 0.3 % (0.0-2.0); EOSINOPHILS # 0.4 10^3/ul (0.0-0.5); EOSINOPHILS % 4.3 % (0.0-7.0); HEMATOCRIT 37.9 % (42.0-52.0); HEMOGLOBIN 12.7 g/dl (14.0-18.0); LYMPHOCYTES % 10.2 % (15.0-51.0); MEAN CORPUSCULAR HEMOGLOBIN 31.4 pg (29.0-33.0); MEAN CORPUSCULAR HGB CONC 33.5 g/dl (32.0-37.0); MEAN CORPUSCULAR VOLUME 93.8 fl (82.0-101.0); MEAN PLATELET VOLUME 9.5 fl (7.4-10.4); MONOCYTE # 0.7 10^3/ul (0.3-0.9); MONOCYTES % 7.2 % (0.0-11.0); NEUTROPHIL # 7.5 10^3/ul (1.6-7.5); NEUTROPHILS % 76.7 % (39.0-77.0); PLATELET COUNT 323 10^3/UL (140-415); RED BLOOD COUNT 4.04 10^6/ul (4.70-6.10); RED CELL DISTRIBUTION WIDTH 12.9 % (11.5-14.5)
[2018-01-25 08:14] LABS: WHITE BLOOD COUNT 9.7 10^3/ul (4.8-10.8)
[2018-01-25] MEDS: METOPROLOL 25 MG TAB PO ×2 (08:31→20:59)
[2018-01-25] MEDS: FAMOTIDINE 20 MG TAB PO ×2 (08:31→20:58)
[2018-01-25] MEDS: DOCUSATE SODIUM 100 MG CAP PO ×2 (08:32→20:59)
[2018-01-25] MEDS: EMPAGLIFLOZIN 10 MG TABLET PO (08:32)
[2018-01-25] MEDS: LINAGLIPTIN 5 MG TABLET PO (08:32)
[2018-01-25] MEDS: ASPIRIN 81 MG TAB PO (08:32)
[2018-01-25] MEDS: metFORMIN 500 MG TAB PO ×2 (08:32→19:00)
[2018-01-25] MEDS: LOSARTAN 25 MG TAB PO (08:32)
[2018-01-25] MEDS: METHYLNALTREXONE 12 MG/0.6 ML VIAL SC (08:33)
[2018-01-25] MEDS: INSULIN ASPART [NOVOLOG] 3 ML PEN SC ×8 (08:34→21:00)
[2018-01-25 08:38] LABS: ANION GAP 15 (8-16); BLOOD UREA NITROGEN 20 mg/dl (7-20); CALCIUM 8.7 mg/dl (8.4-10.2); CARBON DIOXIDE 27 mmol/L (21-31); CHLORIDE 102 mmol/L (97-110); CREATININE 0.92 mg/dl (0.61-1.24); GLUCOSE 143 mg/dl (70-220); MAGNESIUM 1.9 mg/dl (1.7-2.5); POTASSIUM 3.7 mmol/L (3.5-5.1); SODIUM 140 mmol/L (135-144)
[2018-01-25] MEDS: OXYCODONE/ACETAMINOPHEN (5/325) TAB PO ×2 (08:39→15:03)
[2018-01-25] MEDS: ATORVASTATIN 20 MG TAB PO (20:58)
[2018-01-25] MEDS: HYDROmorphONE 0.5 MG/0.5 ML SYG IV (21:00)
[2018-01-25] MEDS: HEPARIN 5,000 UNIT/0.5 ML VIAL SC (21:25)
[2018-01-25] MEDS: INSULIN GLARGINE [LANtus] 3 ML PEN SC (21:50)
[2018-01-26] MEDS: ACCU-CHEK XX ×5 (02:00→13:50)
[2018-01-26] MEDS: ALBUTEROL/IPRATROPIUM (NEB) 3 ML AMP HHN ×3 (02:11→14:15)
[2018-01-26] MEDS: PIPER-TAZO 3.375 GM IV (PMX) 100 ML IVPB ×3 (02:17→13:43)
[2018-01-26] MEDS: FUROSEMIDE 40 MG INJ IV (05:21)
[2018-01-26] MEDS: DIPHENHYDRAMINE 1%/ZINC 28.3 GM CR TOP ×2 (05:26→13:43)
[2018-01-26] MEDS: OXYCODONE/ACETAMINOPHEN (5/325) TAB PO ×2 (07:01→13:54)
[2018-01-26 07:11] LABS: ADD MAN DIFF? NO
[2018-01-26 07:23] LABS: WHITE BLOOD COUNT 8.1 10^3/ul (4.8-10.8)
[2018-01-26 07:23] LABS: BASOPHILS % 0.5 % (0.0-2.0); EOSINOPHILS # 0.5 10^3/ul (0.0-0.5); EOSINOPHILS % 6.5 % (0.0-7.0); HEMATOCRIT 37.4 % (42.0-52.0); HEMOGLOBIN 12.5 g/dl (14.0-18.0); LYMPHOCYTES % 12.3 % (15.0-51.0); MEAN CORPUSCULAR HEMOGLOBIN 31.6 pg (29.0-33.0); MEAN CORPUSCULAR HGB CONC 33.4 g/dl (32.0-37.0); MEAN CORPUSCULAR VOLUME 94.4 fl (82.0-101.0); MEAN PLATELET VOLUME 9.4 fl (7.4-10.4); MONOCYTE # 0.7 10^3/ul (0.3-0.9); MONOCYTES % 8.3 % (0.0-11.0); NEUTROPHIL # 5.7 10^3/ul (1.6-7.5); NEUTROPHILS % 70.6 % (39.0-77.0); PLATELET COUNT 322 10^3/UL (140-415); RED BLOOD COUNT 3.96 10^6/ul (4.70-6.10); RED CELL DISTRIBUTION WIDTH 13.1 % (11.5-14.5)
[2018-01-26 07:45] LABS: ANION GAP 16 (8-16); BLOOD UREA NITROGEN 23 mg/dl (7-20); CALCIUM 8.9 mg/dl (8.4-10.2); CARBON DIOXIDE 28 mmol/L (21-31); CHLORIDE 101 mmol/L (97-110); CREATININE 1.02 mg/dl (0.61-1.24); GLUCOSE 138 mg/dl (70-220); SODIUM 141 mmol/L (135-144)
[2018-01-26 07:49] LABS: URIC ACID 6.1 mg/dl (3.1-7.9)
[2018-01-26] MEDS: INSULIN ASPART [NOVOLOG] 3 ML PEN SC ×4 (07:55→12:51)
[2018-01-26] MEDS: ALLOPURINOL 100 MG TAB PO (09:56)
[2018-01-26] MEDS: DOCUSATE SODIUM 100 MG CAP PO (09:56)
[2018-01-26] MEDS: FAMOTIDINE 20 MG TAB PO (09:56)
[2018-01-26] MEDS: METHYLNALTREXONE 12 MG/0.6 ML VIAL SC (09:56)
[2018-01-26] MEDS: metFORMIN 500 MG TAB PO (09:56)
[2018-01-26] MEDS: LOSARTAN 25 MG TAB PO (09:58)
[2018-01-26] MEDS: ASPIRIN 81 MG TAB PO (09:59)
[2018-01-26] MEDS: METOPROLOL 25 MG TAB PO (09:59)
[2018-01-26] MEDS: EMPAGLIFLOZIN 10 MG TABLET PO (09:59)
[2018-01-26] MEDS: LINAGLIPTIN 5 MG TABLET PO (09:59)
[2018-01-26] MEDS: HEPARIN 5,000 UNIT/0.5 ML VIAL SC (11:58)
[2018-01-26] MEDS: COLCHICINE 0.6 MG TAB PO (14:58)
== END 2018-01-26 16:12 | disposition home health service (06) | DRG 228 ==
LOC: REC 05:31 → TEL 01-20 18:34 → ICU 13:27
PROC: 02100Z9 Bypass Coronary Artery, One Artery from Left Internal Mammary, Open Approach (ICD-10-PCS; principal; 2018-01-17 07:30)
PROC: 02C00ZZ Extirpation of Matter from Coronary Artery, One Artery, Open Approach (ICD-10-PCS; 2018-01-17 07:30)
PROC: 021109W Bypass Coronary Artery, Two Arteries from Aorta with Autologous Venous Tissue, Open Approach (ICD-10-PCS; 2018-01-17 07:30)
PROC: 06BP4ZZ Excision of Right Saphenous Vein, Percutaneous Endoscopic Approach (ICD-10-PCS; 2018-01-17 07:30)
PROC: 5A1221Z Performance of Cardiac Output, Continuous (ICD-10-PCS; 2018-01-17 07:30)
DX: I25.10 Atherosclerotic heart disease of native coronary artery without angina pectoris (principal); I50.33 Acute on chronic diastolic (congestive) heart failure; I31.9 Disease of pericardium, unspecified; L03.116 Cellulitis of left lower limb; I11.0 Hypertensive heart disease with heart failure; E78.5 Hyperlipidemia, unspecified; I25.82 Chronic total occlusion of coronary artery; E11.65 Type 2 diabetes mellitus with hyperglycemia; M10.9 Gout, unspecified; K59.03 Drug induced constipation; T40.2X5A Adverse effect of other opioids, initial encounter; Z79.82 Long term (current) use of aspirin; Z79.4 Long term (current) use of insulin
CPT/HCPCS: 36592; 36600; 71045; 73600-LT; 80048; 80053; 81003; 82803; 82962; 83735; 84560; 85025; 85610; 85730; 86850; 86900; 86901; 86920; 87081; 93005; 93312; 93325; 93880; 93971; 94002; 94640; 94664; 97116; 97163; 97530

== ENCOUNTER 2018-02-21 21:53 | Emergency (ER) | payer MEDICARE, OTHER ==
[2018-02-21 22:27] LABS: ADD MAN DIFF? NO
[2018-02-21 22:28] LABS: BASOPHILS % 0.6 % (0.0-2.0); EOSINOPHILS # 0.6 10^3/ul (0.0-0.5); EOSINOPHILS % 7.8 % (0.0-7.0); HEMOGLOBIN 14.8 g/dl (14.0-18.0); LYMPHOCYTES # 2.3 10^3/ul (0.8-2.9); LYMPHOCYTES % 32.9 % (15.0-51.0); MEAN CORPUSCULAR HEMOGLOBIN 30.8 pg (29.0-33.0); MEAN CORPUSCULAR HGB CONC 32.9 g/dl (32.0-37.0); MEAN CORPUSCULAR VOLUME 93.8 fl (82.0-101.0); MEAN PLATELET VOLUME 9.7 fl (7.4-10.4); MONOCYTE # 0.6 10^3/ul (0.3-0.9); NEUTROPHIL # 3.5 10^3/ul (1.6-7.5); NEUTROPHILS % 49.4 % (39.0-77.0); PLATELET COUNT 217 10^3/UL (140-415); RED CELL DISTRIBUTION WIDTH 13.3 % (11.5-14.5)
[2018-02-21] MEDS: SOD CHLORIDE 0.9% 250 ML IV (22:33)
[2018-02-21] MEDS: CLINDAMYCIN 600 MG/D5W (PMX) 50 ML IVPB (22:38)
== END 2018-02-21 23:35 | disposition home or self-care (01) ==
LOC: E/R 23:35
DX: T81.31XA Disruption of external operation (surgical) wound, not elsewhere classified, initial encounter (principal); I25.10 Atherosclerotic heart disease of native coronary artery without angina pectoris; Y82.8 Other medical devices associated with adverse incidents; Z79.4 Long term (current) use of insulin; Z79.82 Long term (current) use of aspirin
CPT/HCPCS: 85025; 96374; 99284-25